=== PATIENT | male | born 1975 | race Two or more races ===

== ENCOUNTER 2024-08-24 06:51 | Emergency (ER) | payer MEDICAID, SELFPAY ==
[2024-08-24 06:57] VITALS: PULSE 102; RESP 18; O2SAT 96
--- NOTE | 2024-08-24 07:01 | XR_ITS ---
Examination: PA lateral chest 2 views Technique: Upright PA lateral chest 2 views Exam date and time: August 24, 2024 at 0706 hrs. Comparison September 20, 2022 Indications: Coughing shortness of breath chest pain beginning today Findings: Mild heart failure Mild enlargement cardiac contour Prominent vascular congestion with early septal edema at the lung bases Impression: Early heart failure hrs.
--- NOTE | 2024-08-24 07:01 | EKG_ITS ---
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
[2024-08-24 07:23] VITALS: BP 177/109; PULSE 87; RESP 18; TEMP 37.6; O2SAT 99
--- NOTE | 2024-08-24 07:24 | PD.EDURI ---
Upper Respiratory Inf. RME/HPI General Chief Complaint: Chest Pain Stated Complaint: CHEST PAIN Time Seen by Provider: 08/24/24 07:01 Arrival date/time: 08/24/24 06:51 RME / HPI RME / HPI Narrative: This section includes all my notes and documentations, including HPI, PE, and ED course.? Carlos Beasley MD HPI: 49 year old male with history of hypertension [facility] for evaluation of worsening cough and shortness of breath for weeks. No productive cough. No fever. Reports increased swelling in the feet and legs. No other complaints ROS: All negative except as documented in HPI. Physical Exam: General:? Alert and oriented.?No acute distress when remaining still.? Eyes:? Conjunctivae and lids clear.?? ENT:? No nasal congestion.?? Neck:? Supple.?? Lungs:? No respiratory distress.?? Heart:? RRR.? Legs: Moderate edema in the feet and ankles. Skin:? Warm and dry.?? Neuro:? Alert and oriented X 3.?? I reviewed all diagnostic test results. My interpretation of the EKG is?Sinus rhythm (93 bpm) with PACs and nonspecific ST-T changes. My interpretation of the chest x-ray is early heart failure, no pneumonia. At this point, diagnoses include?mild CHF. Prescribed Lasix and recommended more outpatient care. Based on my best medical judgment, made decision no further evaluation or treatment indicated at this time.? Patient understands and agrees to the discharge instructions customized and printed, see below. Discharge Instructions from Dr. Beasley: --After evaluation, your symptoms are due to CHF (congestive heart failure) or fluid in your lungs.? See attached handouts. --When you were younger, your heart was strong and pumped everything out.? Now that your heart is getting weaker, it?s not able to pump all the blood/fluid out of the heart when it pumps.? So the remaining blood/fluid in the heart goes back into your lungs.? And into feet/legs by gravity.? --To help urinate out the extra fluid, take Lasix 20 mg every morning until cleared by a doctor taking care of you.?? --When sitting or resting and sleeping, elevate the head of bed and elevate your feet/ankles above your waist level.? This is extremely important because this will help get the extra fluid back into your circulation so you can urinate out the extra fluid. --Limit all oral fluid to less than 4 cups per 24 hours.? This is extremely important because we need to decrease the extra fluid in your lungs.? Then don't go out of your way to drink too much fluid--only when your body tells you to drink.?? --Eat a banana daily because Lasix can lower your potassium level.?? --See your private doctor on 08/25/2024 for recheck and further care.?? Ask to help you get more tests for your heart that cannot be done here in the ER.? Such as Holter Monitor (cardiac monitoring at home from a day to even a month), heart stress test (on treadmill or with medication), echocardiogram (imaging of your heart structures), heart catherization (checking for blockages in your heart arteries), and a referral to see a Valet Manager.? --Read attached patient handouts and seek immediate medical care with worsening or with any concerns.? Carlos Beasley MD Related Data Home Medications ?Medication ?Instructions ?Recorded ?Confirmed lisinopril 20 mg tablet 20 tab PO QDAY 11/20/21 11/20/21 Previous Rx's ?Medication ?Instructions ?Recorded lisinopril 20 mg tablet 20 mg PO QDAY #30 tabs 09/20/22 furosemide 20 mg tablet (Lasix) 20 mg PO QDAY #30 tabs 08/24/24 Allergies Allergy/AdvReac Type Severity Reaction Status Date / Time No Known Allergies Allergy Verified 08/24/24 07:00 Review of Systems Review of Systems Systems Reviewed: All systems reviewed, normal except as documented Past Medical History Past Medical History CARDIAC: Positive Cardiac Disorders and Congestive Heart Failure RESPIRATORY: Negative Chronic Obstructive Pulmonary Disease (COPD) GENITOURINARY: Negative Renal Disease ENDOCRINE: Negative Diabetes Mellitus Type 1 or Diabetes Mellitus Type 2 Social History SMOKING STATUS: Current some day smoker SUBSTANCE USE: methamphetamine ED Exam Narrative Physical exam: As noted in HPI Course Course Course Narrative: chest xray ordered to help determine etiology of chest pain. Quality Measures none Orders Category Date Time Status Bedside COVID-19 Antigen Test NOW Care 08/24/24 07:01 Active Bedside Influenza A&B Antigen Test NOW Care 08/24/24 07:01 Completed EKG (ED ONLY) *Do not use* NOW Care 08/24/24 07:01 Completed EKG (ED Only) Stat Exams 08/24/24 07:01 Draft XR chest 2V Stat Exams 08/24/24 07:01 Completed Vital Signs Vital signs: Vital Signs Temperature 99.7 F 08/24/24 07:23 Pulse Rate 87 08/24/24 07:23 Respiratory Rate 18 08/24/24 07:23 Blood Pressure 177/109 H 08/24/24 07:23 Pulse Oximetry (%) 99 08/24/24 07:23 Oxygen Delivery Method Room Air 08/24/24 07:23 Pulse ox is 99% on room air which is adequate. Upper Respiratory Infection MDM Narrative MDM Narrative:: Carolina Macias am scribing for and in the presence of Dr. Beasley. Patient data External records reviewed:: [facility] previous records (I reviewed ED visit on 09/20/2022) Clinical information provided by:: patient Social determinants that could affect healthcare access:: housing (Homeless) Patient has the following chronic illnesses:: HTN How is presenting disease/condition affected by chronic disease/condition?: exacerbated by Evaluation data The following diagnostics were reviewed and interpreted by me:: lab results, radiology exam(s) and EKG tracing(s) (My interpretation of the EKG is: Sinus rhythm (93 bpm) with PACs and nonspecific ST-T changes. Carlos Beasley MD) Lab and/or radiology exams considered but not ordered:: None Interpretation Summary: My interpretation of the chest x-ray is early heart failure, no pneumonia. Medications / Prescriptions Medications or Prescriptions considered but not ordered:: None Medication administrations:: None Consultations Consultation(s) initiated? (list below): No Diagnosis Upper Respiratory Differential Diagnosis: upper respiratory infection, viral infection, bronchitis, influenza and other (pneumonia ) Most likely diagnosis given after review of the tests above:: CHF Admission Indicated Admission indicated?: not indicated Explain why admission is indicated or not indicated:: Does not meet admission criteria Admission Request Was there a request for admission?: No Disposition Plan Disposition Plan: Discharge Discharge Attestation Discharge Attestation: The patient and all family members were given an opportunity to ask questions and understood the discharge instructions. Discharge instructions specifically effects, indications for sooner follow up or return to the emergency department, and the expected course of current diagnosis. Patient condition: Stable Discharge Plan Plan Patient Disposition: HOME (Self Care) Prescriptions/Referrals Prescriptions/Med Rec: New furosemide [Lasix] 20 mg tablet 20 mg PO QDAY Qty: 30 0RF No Action lisinopril 20 mg tablet 20 tab PO QDAY lisinopril 20 mg tablet 20 mg PO QDAY Qty: 30 0RF Referrals: Abigail Cee FNP [Primary Care Provider] - In 1 week Problem List Clinical Impression: CHF (congestive heart failure) Patient/Caregiver Discharge Instructions Discharge Activity: activity as tolerated Education Materials: ED CHF Left Side, ED Heart Failure Congestive Right Additional Instructions: Discharge Instructions from Dr. Beasley: --After evaluation, your symptoms are due to CHF (congestive heart failure) or fluid in your lungs.? See attached handouts. --When you were younger, your heart was strong and pumped everything out.? Now that your heart is getting weaker, it?s not able to pump all the blood/fluid out of the heart when it pumps.? So the remaining blood/fluid in the heart goes back into your lungs.? And into feet/legs by gravity.? --To help urinate out the extra fluid, take Lasix 20 mg every morning until cleared by a doctor taking care of you.?? --When sitting or resting and sleeping, elevate the head of bed and elevate your feet/ankles above your waist level.? This is extremely important because this will help get the extra fluid back into your circulation so you can urinate out the extra fluid. --Limit all oral fluid to less than 4 cups per 24 hours.? This is extremely important because we need to decrease the extra fluid in your lungs.? Then don't go out of your way to drink too much fluid--only when your body tells you to drink.?? --Eat a banana daily because Lasix can lower your potassium level.?? --See your private doctor on 08/25/2024 for recheck and further care.?? Ask to help you get more tests for your heart that cannot be done here in the ER.? Such as Holter Monitor (cardiac monitoring at home from a day to even a month), heart stress test (on treadmill or with medication), echocardiogram (imaging of your heart structures), heart catherization (checking for blockages in your heart arteries), and a referral to see a Valet Manager.? --Read attached patient handouts and seek immediate medical care with worsening or with any concerns.? Print Language: Albanian Stand Alone Forms: Marlene Award Info., Patient Portal Info Letter
[2024-08-24 07:33] VITALS: BMI 64.2
== END 2024-08-24 10:35 | disposition home or self-care (01) ==
PROVIDERS: Emergency Provider Emergency Medicine; PCP Nurse Practitioner Family
DX: I11.0 Hypertensive heart disease with heart failure (principal); I50.9 Heart failure, unspecified
CPT/HCPCS: 71046; 87400; 87811; 93005; 99283

== ENCOUNTER 2024-08-24 18:41 | Emergency (ER) | payer MEDICAID, SELFPAY ==
[2024-08-24] VITALS (13 sets, daily range): BP systolic 118–176; BP diastolic 81–122; PULSE 77–114; RESP 18–43; TEMP 37.2–38.8; O2SAT 93–98; BMI 66.2
--- NOTE | 2024-08-24 18:44 | PD.EDCHEST ---
ED Chest Pain RME/HPI General Chief Complaint: Chest Pain Stated Complaint: CHEST PAIN Time Seen by Provider: 08/24/24 18:43 Source: patient and EMS Arrival date/time: 08/24/24 18:41 Mode of arrival: EMS Limitations: no limitations RME / HPI RME / HPI narrative: DR RIVERA MAIN ED EVALUATION: 49-year-old [place] with a chief complaint of persistent chest pain and shortness of breath. The patient reports that her symptoms began earlier in the day while she was at the park and have continued. She describes the chest pain as sharp and aching with an intensity of 8 out of 10. Notably, she experienced some relief after receiving sublingual nitroglycerin from EMS, although the pain remains significant. Prior to this visit, the patient was evaluated in the emergency department and discharged with a diagnosis of congestive heart failure. On scene, EMS documented a blood pressure of 176/119 mmHg, a pulse of 104 beats per minute, a respiratory rate of 18 breaths per minute, and an oxygen saturation of 98% on room air. In addition to the nitroglycerin, she was administered aspirin (162 mg) as per EMS. Related Data Home Medications ?Medication ?Instructions ?Recorded ?Confirmed lisinopril 20 mg tablet 20 tab PO QDAY 11/20/21 11/20/21 Previous Rx's ?Medication ?Instructions ?Recorded lisinopril 20 mg tablet 20 mg PO QDAY #30 tabs 09/20/22 Allergies Allergy/AdvReac Type Severity Reaction Status Date / Time No Known Allergies Allergy Verified 08/24/24 19:00 Review of Systems Review of Systems Systems Reviewed: All systems reviewed, normal except as documented Past Medical History Past Medical History CARDIAC: Positive Cardiac Disorders and Congestive Heart Failure RESPIRATORY: Negative Chronic Obstructive Pulmonary Disease (COPD) GENITOURINARY: Negative Renal Disease ENDOCRINE: Negative Diabetes Mellitus Type 1 or Diabetes Mellitus Type 2 HEMATOLOGIC: Negative Sickle Cell Disease Social History SMOKING STATUS: Former smoker SUBSTANCE USE: methamphetamine ED Exam Narrative Physical exam: GENERAL APPEARANCE: alert and oriented x 4, well-developed, well-nourished, no acute distress VITALS: All vitals were reviewed and the pulse ox is 96% on 2 L/min via nasal cannula, which is normal according to my interpretation. HEENT: Normocephalic, atraumatic; pupils equal, round, reactive to light; EOMI; mucous membranes pink, moist; oropharynx clear NECK: Supple LUNGS: CTABL; no wheezes, no rales, no rhonchi HEART: Regular rate, regular rhythm; normal S1, S2; no murmurs ABDOMEN: non distended; normal BS; soft, no tenderness, no guarding, no rebound; no masses, no organomegaly, no hernia BACK: no CVA tenderness EXTREMITIES: atraumatic; no edema NEUROLOGIC: awake; alert and oriented x4; cranial nerves II-XII grossly intact; no focal sensory or motor deficits PSYCHIATRIC: appropriate mood and affect SKIN: warm, dry, normal color; no rashes General Limitations: Present no limitations Course Course Course Narrative: CXR is ordered for determining etiology of chest pain. 2028 Sepsis alert initiated. Orders made at this time are congruent with ED Adult Sepsis Order List. Re-evaluation is to be completed. 2058 Sepsis reassessment performed consisting of lab review, vitals, physical exam including auscultation of heart, lungs, and visual evaluation of capillary refills, mucosal membranes and extremities. Quality Measures Current suspected stage: sepsis Possible source: unknown Blood cultures ordered: yes Antibiotic ordered: Yes Pertinent labs: 08/24/24 20:10 Lactic Acid 1.1 mMol/L (0.4-2.0) Procalcitonin 0.11 ng/ml (0.0-0.49) sepsis and none Orders Category Date Time Status CT Screening NOW Care 08/24/24 20:16 Active Service Mechanic NOW Care 08/24/24 19:59 Active EKG (ED ONLY) *Do not use* NOW Care 08/24/24 19:[address] angio chest Stat Exams 08/24/24 20:16 Completed EKG (ED Only) Stat Exams 08/24/24 19:59 Draft XR ribs LT min 3V w CXR1V Stat Exams 08/24/24 19:20 Completed B-Type Natriuretic Peptide Stat Lab 08/24/24 20:10 Completed Blood Culture (Lab) Stat Lab 08/24/24 20:15 Received CBC Stat Lab 08/24/24 20:10 Completed Comprehensive Metabolic Panel Stat Lab 08/24/24 20:10 Completed Drug Screen,Urine Stat Lab 08/24/24 21:06 Completed Lactate (Lactic Acid) Stat Lab 08/24/24 20:10 Completed Lipase Stat Lab 08/24/24 20:10 Completed Magnesium Stat Lab 08/24/24 20:10 Completed Partial Thromboplastin Time Stat Lab 08/24/24 20:10 Completed Procalcitonin Stat Lab 08/24/24 20:10 Completed Prothrombin Time with INR Stat Lab 08/24/24 20:10 Completed Troponin I Stat Lab 08/24/24 20:10 Completed Troponin I Stat Lab 08/24/24 23:22 Completed UA, C/S IF [Urinalysis, C/S if Indicated] Stat Lab 08/24/24 21:07 Completed Acetaminophen Tab [Tylenol ES Tab] Med 08/24/24 20:59 Discontinued 1,000 mg PO X1 ONE HYDROcodone*/APAP 5/325 [[place] 5/325] Med 08/24/24 19:20 Discontinued 1 tab PO X1 ONE Labetalol IV [Trandate IV] Med 08/24/24 19:57 Discontinued 20 mg IVP X1 ONE Sodium Chloride 0.9% 1000 ml [Ns] 1,000 ml Med 08/24/24 21:42 Discontinued IV 999 mls/hr Vital Signs Vital signs: Vital Signs Temperature 100.0 F 08/24/24 19:01 Pulse Rate 101 H 08/24/24 19:01 Respiratory Rate 43 H 08/24/24 19:01 Blood Pressure 176/121 H 08/24/24 19:01 Pulse Oximetry (%) 96 08/24/24 19:01 Oxygen Delivery Method Room Air 08/24/24 19:01 Chest Pain MDM Narrative MDM Narrative:: Scribe Attestation: Sonja Macias am scribing for and in the presence of Dr. Rivera. Provider Notation: Although this document has been carefully reviewed, there may still be some phonetic and other typographical errors. These errors are purely grammatical due to imperfections in the software program and should not be construed in any way to compromise the substance of the patient's medical care during this visit. Patient data External records reviewed:: [facility] previous records Clinical information provided by:: patient Social determinants that could affect healthcare access:: none Patient has the following chronic illnesses:: see PMH How is presenting disease/condition affected by chronic disease/condition?: uneffected by Evaluation data The following diagnostics were reviewed and interpreted by me:: lab results, radiology exam(s) and EKG tracing(s) Lab and/or radiology exams considered but not ordered:: na Interpretation Summary: I personally reviewed the radiology data and agree with the radiologist's interpretation. Examination: Ribs, left, with PA chest, 5 views Technique: Chest PA, RIBS AP, RPO, LPO, AP coned lower ribs 5 views Exam date and time: August 24, 2024 2016 hrs. Indications: Injury to the left chest today left rib pain Findings: Mild enlargement cardiac contour Moderate vascular congestion No pneumothorax No acute rib fractures Impression: No pneumothorax pulmonary contusion or hemothorax No acute rib fractures Dictated By: Hector Eng MD [place] [facility] Report Signed Patient: NOEL AARON Record#: [id number] Birthdate: 1975 Age/Sex: 49 / M Location: [facility] Attending Dr: Ordering Physician: Leona Rivera MD Date of Service: 08/24/24 Procedure(s): CT angio chest Accession Number(s): [id number] cc: Hector Eng MD; Leona Rivera MD~ Examination: CTA chest with intravenous contrast 2-D reconstructions 3-D reconstructions, vascular Date and time of exam: August 24, 2024 0953 hrs. Indications: Shortness of breath chest pain beginning one week ago CTDI: vol (mGy) 15.5 DLP: (mGycm) 596 Technique: Multiple axial sections of the thorax have been obtained. 3 mm slice thickness, from below the hemidiaphragms to above the apices of the lungs. Mediastinal and lung density settings have been obtained. 2-D sagittal and coronal reconstructions. 3-D angiographic renderings, 3-D volume renderings, 3D post processing, vascular maximum intensity projections obtained. Contrast administered is 100 cc Isovue-370 Low dose protocols were performed. One or more of the following dose reduction techniques were used; automated exposure control, adjustment of the mA and/or KV according to patient size, use of iterative reconstruction technique. Findings: AP dimension ascending thoracic aorta 4.5 cm no thoracic aortic dissection Main pulmonary artery segment 38 mm No pulmonary artery emboli No pathologic paratracheal tracheobronchial or bronchopulmonary adenopathy Mild vascular congestion No lobar pneumonia or pawan pulmonary edema Fatty liver Contracted gallbladder No pancreatic mass Kidneys partially visualized no hydronephrosis Impression: Mild aneurysmal dilatation ascending thoracic aorta Pulmonary artery hypertension Negative for pulmonary artery emboli No pneumonia or pulmonary edema Dictated By: Hector Eng MD Signed By: <Electronically signed by Hector Eng MD in OV> 08/24/24 2237 Medications / Prescriptions Medications or Prescriptions considered but not ordered:: na Medication administrations:: Medication Administration History Discontinued Medications Acetaminophen (Acetaminophen 500 Mg Tablet) 1,000 mg PO X1 ONE Stop: 08/24/24 21:00 Last Admin: 08/24/24 21:11 Dose: 1,000 mg Documented By: WO Hydrocodone Bitart/Acetaminophen (Hydrocodone/Apap 5/325 Tablet) 1 tab PO X1 ONE Stop: 08/24/24 19:21 Last Admin: 08/24/24 19:27 Dose: 1 tab Documented By: GIANA Sodium Chloride (Ns) 1,000 mls @ 999 mls/hr IV .Q1H1M ONE Stop: 08/24/24 22:42 Last Admin: 08/24/24 22:17 Dose: 999 mls/hr Documented By: NEPTALI Labetalol HCl (Labetalol Inj 5 Mg/Ml Vial 20 Ml) 20 mg IVP X1 ONE Stop: 08/24/24 19:58 Last Admin: 08/24/24 20:15 Dose: 20 mg Documented By: WO as above, if any Consultations Consultation(s) initiated? (list below): No Diagnosis Chest Pain Differential Diagnosis: other (CHF, sepsis, URI, pneumonia) Most likely diagnosis given after review of the tests above:: see below Admission Indicated Admission indicated?: not indicated Admission Request Was there a request for admission?: No Disposition Plan Disposition Plan: Discharge Discharge Attestation Discharge Attestation: The patient and all family members were given an opportunity to ask questions and understood the discharge instructions. Discharge instructions specifically effects, indications for sooner follow up or return to the emergency department, and the expected course of current diagnosis. Patient condition: Stable Discharge Plan Plan Patient Disposition: HOME (Self Care) Prescriptions/Referrals Prescriptions/Med Rec: No Action lisinopril 20 mg tablet 20 tab PO QDAY lisinopril 20 mg tablet 20 mg PO QDAY Qty: 30 0RF furosemide [Lasix] 20 mg tablet 20 mg PO QDAY Qty: 30 0RF Problem List Clinical Impression: Fever, Anterior chest wall pain Patient/Caregiver Discharge Instructions Print Language: Korean Stand Alone Forms: Marlene Award Info., Patient Portal Info Letter
--- NOTE | 2024-08-24 19:20 | XR_ITS ---
Examination: Ribs, left, with PA chest, 5 views Technique: Chest PA, RIBS AP, RPO, LPO, AP coned lower ribs 5 views Exam date and time: August 24, 20242015 hrs. Indications: Injury to the left chest today left rib pain Findings: Mild enlargement cardiac contour Moderate vascular congestion No pneumothorax No acute rib fractures Impression: No pneumothorax pulmonary contusion or hemothorax No acute rib fractures
[2024-08-24] MEDS: HYDROcodone/APAP 5/325 TABLET 1 TAB PO (19:27)
--- NOTE | 2024-08-24 19:59 | EKG_ITS ---
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
[2024-08-24] MEDS: LABETALOL INJ 5 MG/ML VIAL 20 ML 20 MG IVP (20:15)
--- NOTE | 2024-08-24 20:16 | XR_ITS ---
Examination: CTA chest with intravenous contrast 2-D reconstructions 3-D reconstructions, vascular Date and time of exam: August 24, 2024 0953 hrs. Indications: Shortness of breath chest pain beginning one week ago CTDI: vol (mGy) 15.5 DLP: (mGycm) 596 Technique: Multiple axial sections of the thorax have been obtained. 3 mm slice thickness, from below the hemidiaphragms to above the apices of the lungs. Mediastinal and lung density settings have been obtained. 2-D sagittal and coronal reconstructions. 3-D angiographic renderings, 3-D volume renderings, 3D post processing, vascular maximum intensity projections obtained. Contrast administered is 100 cc Isovue-370 Low dose protocols were performed. One or more of the following dose reduction techniques were used; automated exposure control, adjustment of the mA and/or KV according to patient size, use of iterative reconstruction technique. Findings: AP dimension ascending thoracic aorta 4.5 cm no thoracic aortic dissection Main pulmonary artery segment 38 mm No pulmonary artery emboli No pathologic paratracheal tracheobronchial or bronchopulmonary adenopathy Mild vascular congestion No lobar pneumonia or pawan pulmonary edema Fatty liver Contracted gallbladder No pancreatic mass Kidneys partially visualized no hydronephrosis Impression: Mild aneurysmal dilatation ascending thoracic aorta Pulmonary artery hypertension Negative for pulmonary artery emboli No pneumonia or pulmonary edema
[2024-08-24 20:30] LABS: Lactate (Lactic Acid) 1.1 mMol/L (0.4-2.0)
[2024-08-24 20:35] LABS: Basophils % (Auto) 1 % (0-2.5); Eosinophils # (Auto) 0.1 Thou/mm3 (0.0-0.5); Eosinophils % (Auto) 1 % (0-10); Hematocrit 42.2 % (41.0-53.0); Hemoglobin 14.5 g/dL (13.5-16.0); Immature Granulocytes % (Auto) 1 % (0-0); Immature Granulocytes Auto 0.06 Thou/mm3 (0.00-0.00); Lymphocytes # (Auto) 0.7 Thou/mm3 (1.0-4.8); Lymphocytes % (Auto) 12 % (10-50); Mean Corpuscular HGB Conc 34.4 g/dl (31.0-37.0); Mean Corpuscular Hemoglobin 29.8 pg (25.0-35.0); Mean Corpuscular Volume 87 fL (80-100); Monocytes # (Auto) 0.8 Thou/mm3 (0.0-0.8); Monocytes % (Auto) 14 % (0-12); Neutrophils # (Auto) 4.3 Thou/mm3 (1.8-7.7); Neutrophils % (Auto) 72 % (37-80); Nucleated Red Blood Cell % 0 /100 WBC (0); Platelet Count 155 Thou/mm3 (140-440); RDW Standard Deviation 46.6 fL (35.1-43.9); Red Blood Count 4.86 Miln/mm3 (4.50-5.90)
[2024-08-24 20:50] LABS: INR 1.1 (0.9-1.3); Partial Thromboplastin Time 27.6 Seconds (22.0-36.0); Prothrombin Time 12.4 Seconds (9.0-12.2)
[2024-08-24 21:02] LABS: B-Type Natriuretic Peptide 83 pg/mL (0-100)
[2024-08-24] MEDS: ACETAMINOPHEN 500 MG TABLET 1000 MG PO (21:11)
[2024-08-24 21:21] LABS: Collection Type, Urine Clean Catch
[2024-08-24 21:23] LABS: Alanine Aminotransferase 21 U/L (10-49); Albumin, Serum 3.9 gm/dL (3.5-5.0); Albumin/Globulin Ratio 1.2 (1.2-2.2); Anion Gap 8 (7-16); Aspartate Amino Transferase 42 U/L (0-34); BUN/Creatinine Ratio 13 Ratio (12-20); Bilirubin,Total 0.6 mg/dL (0.3-1.2); Blood Urea Nitrogen 10 mg/dL (9-23); Calcium 8.5 mg/dL (8.3-10.6); Calcium (Corrected) 8.6 mg/dL (8.5-10.1); Carbon Dioxide 25.4 mMol/L (20.0-31.0); Chloride 99 mMol/L (98-107); Creatinine (Component) 0.8 mg/dL (0.6-1.3); Estimated Creatinine Clearance 174.1 mL/min (>60); Globulin 3.2 gm/dL (2.3-3.5); Glucose 98 mg/dL (74-106); Lipase 27 U/L (12-53); Magnesium 1.8 mg/dL (1.6-2.6); Osmolality,Calculated 263 (275-295); Procalcitonin 0.11 ng/ml (0.0-0.49); Sodium 132 mMol/L (136-145); Total Protein 7.1 gm/dL (5.7-8.2); Troponin I 0.033 ng/mL (0.0-0.045); eGFR > 60 See Note
[2024-08-24 21:53] LABS: Bilirubin,Urine Negative (Negative); Blood,Urine Negative (Negative); Clarity,Urine Clear (Clear/Hazy); Color,Urine Yellow (Lt Yel-Yel); Culture Indicated,Urine Not Indicated; Glucose, Urine Negative (Negative); Hyaline Casts,Urine < 1 /hpf (0-1); Ketones,Urine Negative (Negative); Leukocyte Esterase,Urine Negative (Negative); Nitrite,Urine Negative (Negative); PH,Urine 6.5 (5.0-7.0); Protein,Urine 1+ (Neg - Trace); RBC,Urine 3 /hpf (0-3); Squamous Epithelial Cell,Urine 1 /hpf (0-5); Urobilinogen,Urine Negative mg/dL (0.0-1.0); WBC,Urine 2 /hpf (0-5)
[2024-08-24 21:55] LABS: Amphetamine/Methamp Scrn,U Positive (Negative); Barbiturate Screen,Urine Negative (Negative); Benzodiazepines Screen,Urine Negative (Negative); Benzoylecgonine Screen, Ur Negative (Negative); Fentanyl Screen,Urine Negative (Negative); Opiate Screen,Urine Negative (Negative); THC Screen,Urine Negative (Negative)
[2024-08-24 22:02] LABS: Alkaline Phosphatase 74 U/L (46-116)
[2024-08-24] MEDS: SODIUM CHLORIDE 0.9% 1000 ML 1,000 ML 999 ML IV (22:17)
[2024-08-24 23:55] LABS: Troponin I 0.032 ng/mL (0.0-0.045)
== END 2024-08-25 00:47 | disposition home or self-care (01) ==
LOC: SERX 08-25 00:28
PROVIDERS: Emergency Provider Emergency Medicine; PCP Nurse Practitioner Family
DX: R50.9 Fever, unspecified (principal); R07.89 Other chest pain; I50.9 Heart failure, unspecified
CPT/HCPCS: 36415; 71101; 71275; 80053; 80307; 81001; 83605; 83690; 83735; 83880; 84145; 84484; 85025; 85610; 85730; 87040; 87400; 87811; 93005; 96360; 96361; 96374; 99285; A4649; J3490; J7030; Q9967; A9270; J1920